=== PATIENT | female | born 1990 | race Caucasian/White ===

== ENCOUNTER 2022-11-05 14:47 | Emergency (ER) | payer SELFPAY ==
[~2022-11-05] VITALS: Ht 170.2 cm; Wt 99.8 kg
[2022-11-05 14:56] VITALS: BP 120/81
--- NOTE | 2022-11-05 15:18 | NUR ---
BIBA TO BED 06
[2022-11-05 15:30] VITALS: BP 127/75
[2022-11-05] MEDS ORDERED: LIDOCAINE 1% 500 MG/ 50 ML VIAL INJ ONE (15:45)
[2022-11-05] MEDS ORDERED: LIDOCAINE/EPI 2% 1:100000 20 ML VIAL INJ ONE ×2 (16:31→16:35)
[2022-11-05] MEDS ORDERED: LIDOCAINE/EPI MPF 2%1:200000 10 ML VIAL INJ ONE (16:35)
--- NOTE | 2022-11-05 16:46 | NUR ---
ER MD AT BEDSIDE PLACING SUTURES ON PATIENT'S LACERATION
[2022-11-05] MEDS ORDERED: BACITRACIN OINT 500 UNITS/GM PKT TP ONE (16:55)
--- NOTE | 2022-11-05 17:10 | NUR ---
ER MD GAVE VERBAL DISCHARGE INSTRUCTIONS TO PATIENT.
--- NOTE | 2022-11-05 17:13 | NUR ---
PT LEFT WITHOUT DISCHARGE PAPER WORK BUT PATIENT IS AWARE OF DISCHARGE INSTRUCTIONS
== END 2022-11-05 17:13 | disposition home or self-care (01) ==
LOC: MED 14:47
DX: S01.81XA Laceration without foreign body of other part of head, initial encounter (principal); F10.129 Alcohol abuse with intoxication, unspecified; Z98.890 Other specified postprocedural states; W19.XXXA Unspecified fall, initial encounter; Y93.89 Activity, other specified; Y92.89 Other specified places as the place of occurrence of the external cause; Y99.8 Other external cause status
CPT/HCPCS: 12011; 90471; 90715; 99283; J2001